=== PATIENT | male | born 1965 | race Caucasian/White ===

== ENCOUNTER → 2022-12-05 07:25 | Outpatient (CLI) | payer BC, SELFPAY ==
--- NOTE | 2022-12-05 07:34 | CA_ITS ---
FINAL REPORT TECHNIQUE: Grayscale, color Doppler and duplex Doppler ultrasound of the kidneys, aorta and renal arteries was performed. Multiple velocities were measured. CLINICAL HISTORY: HTN, Obesity COMPARISON: None FINDINGS: Aorta velocity: 105.9 cm/sec Right kidney: 12.6 cm. No evidence of hydronephrosis or mass. Right intrarenal RI: 0.7 Right renal artery velocity: 158 cm/sec. Right RAR (Renal artery-Aortic Ratio): 1.5 Left Kidney: 11.6 cm. No evidence of hydronephrosis or mass. Left intrarenal RI: 0.64 Left renal artery velocity: 210.8 cm/sec. Left RAR (Renal Artery-Aortic Ratio): 2 IMPRESSION: No evidence of significant renal artery stenosis on the right. Less than 60% left renal artery stenosis. CT angiogram, catheter angiography, or postcontrast MR angiogram would be more sensitive for evaluation of possible renal artery stenosis. Reviewed, Interpreted and Dictated by Josh Dorantes III, MD Transcribed by Adrienne Reyna Authenticated and [facility]
--- NOTE | 2022-12-05 07:34 | CA_ITS ---
APPROVED REPORT EXAM: Comprehensive 2D, Doppler, and color-flow Echocardiogram Bunch Maker Hand: Linda Putnam CRT Ht: 5 ft 6 in Wt: 288lbs BSA: 2.33 BP: 166/93 mmHg Indications: Chest Pain, Diabetes, Peripheral Edema, Hypertension/HDD 2D Dimensions LVOT 1.83 cm (M/F) 1.5-2.5 LA Volume 85.30 mL LA Volume Index 35.70 mL/m2 (M/F) 16-34 M-Mode Dimensions RVDd 2.84 cm (0.9-2.6) LA Diam 4.19 cm (1.9-4.0) LVDd 5.14 cm (3.5-5.7) Ao Diam 4.75 cm (2.0-3.7) LVDs 3.24 cm (3.5-5.7) IVSd 2.17 cm (0.6-1.1) PWd 1.07 cm (0.6-1.1) EF (Teich) 66.50% FS 37.00% EDV (Teich) 126.10 mL TAPSE 3.50 (<1.7) ESV (Teich) 42.20 mL LV Diastology E Decel Time 300.00 (160-240 msec) E/A Ratio 0.54 MED E' 2.40 (< 7 cm/sec) MED A' 8.10 cm/s E'/MED E' Ratio 21.21 (>14) LAT E' 5.20 (<10 cm/sec) LAT A' 10.80 cm/s E/LAT E' Ratio 9.79 (>14) Aortic Valve LVOT Max 145.00 (70-110 cm/s) LVOT VTI 32.82 cm AoV Peak Josue. 154.00 (50-130 cm/s) AO Peak GR. 9.50 mmHg AO Mean GR. 5.50 (<5 mmHg) AO VTI 29.21 (18-25 cm) BEATRICE (VTI) 2.96 (2.5-4.5 cm2) Mitral Valve MV A Velocity 94.00 (40-130 cm/s) E/A Ratio 0.54 MV Decel. Time 300.00 (160-240 ms) Pulmonary Valve PV Peak Velocity 92.00 (50-150 cm/s) Tricuspid Valve TR P. Velocity 218.00 cm/s RAP Estimate 10.00 mmHg RVSP 28.90 mmHg Left Ventricle The left ventricle is normal size. The left ventricular systolic function is normal. The left ventricular ejection fraction is within the normal range. There is increased LV wall thickness. There is normal LV segmental wall motion. Transmitral Doppler flow pattern suggests impaired LV relaxation. LVEF is 60???65%. Right Ventricle Right ventricle is mildly dilated. The right ventricular systolic function is normal. Atria The left atrium size is normal. The right atrium size is normal. There is no Doppler evidence of interatrial shunt. Aortic Valve The aortic valve is mildly thickened. There is no aortic valvular stenosis. Trace aortic regurgitation. Mitral Valve The mitral valve leaflets are mildly thickened. No evidence of mitral valve stenosis. Trace mitral regurgitation. Tricuspid Valve The tricuspid valve leaflets are thin and pliable. Trace tricuspid regurgitation. RVSP is 20-25 mmHg. Pulmonic Valve The pulmonary valve is normal in structure. Trace pulmonic regurgitation. Great Vessels The aortic root is normal in size. The ascending aorta is mildly dilated, measuring 4.1 cm in diameter. IVC is normal in size and collapses >50% with inspiration. Pericardium There is no pericardial effusion. Other Information Study Quality: Fair Conclusion Normal biventricular systolic function. Mildly dilated RV. Mildly dilated ascending aorta, measuring 4.1 cm in diameter Electronically signed by : Haley Rose MD 12/07/2022 21:38:46
--- NOTE | 2022-12-05 08:43 | US_ITS ---
FINAL REPORT TECHNIQUE: Ultrasound images of the kidneys and bladder were obtained. CLINICAL HISTORY: K21.9 - Gastro-esophageal reflux disease without esophagitis-- hypertension COMPARISON: None FINDINGS: The right kidney measures 11.2 cm in length. It is normal in echogenicity. There is no hydronephrosis. No masses are identified. The left kidney measures 10.9 cm in length. It is normal in echogenicity. There is no hydronephrosis. IMPRESSION: Unremarkable renal ultrasound. Reviewed, Interpreted and Dictated by Josh Dorantes III, MD Transcribed by Adrienne Reyna Authenticated and [facility]
== END ==
PROVIDERS: PCP Family Medicine; Visit Provider Physician Assistant
DX: I10 Essential (primary) hypertension (principal); R06.00 Dyspnea, unspecified; R07.89 Other chest pain; Z82.49 Family history of ischemic heart disease and other diseases of the circulatory system; K21.9 Gastro-esophageal reflux disease without esophagitis; E11.9 Type 2 diabetes mellitus without complications; Z79.84 Long term (current) use of oral hypoglycemic drugs; E66.9 Obesity, unspecified; Z68.42 Body mass index [BMI] 45.0-49.9, adult
CPT/HCPCS: 76770; 93306; 93976

== ENCOUNTER 2022-12-15 06:28 | Outpatient (CLI) | payer BC, SELFPAY ==
--- NOTE | 2022-12-15 06:35 | CT_ITS ---
APPROVED REPORT Religious Activities Director: CLINICAL INDICATION Chest Pain TECHNIQUE Image Acquisition: A 128 slice MDCT scanner ([employer] View) was used for data acquisition. A noncontrast coronary calcium scan was performed. A CT attenuation threshold of 130 Hounsfield units (HU) was used for the detection of calcium in contiguous voxels of 1 sq mm in area to be counted as individual lesions. Bolus tracking in the ascending aorta with a threshold of 180 HU was performed. Immediately afterwards, ECG synchronized cardiac CT was then performed from the cardiac base to apex using retrospective gating with ECG tube current modulation. A total of 85 mL of Isovue 370 mg/mL contrast medium was administered at 5 mL/sec followed by a saline flush using a biphasic injection protocol. A tube voltage of 120 KVp was used. The patient received the following medications prior to the cardiac CT. 0.8 mg of sublingual nitroglycerin The average heart rate at the time of acquisition was 54 bpm and regular. Image Reconstruction Transaxial images were reconstructed at 0.67 mm slide thickness. Data was reviewed interactively on an advanced workstation capable of 2 and 3-dimensional displays in all conventional reconstruction formats, including multiplanar reformations, maximum intensity projections, curved multiplanar reformations, and volume rendered reconstructions. When applicable, selected routine images describing the relevant coronary anatomy and pathology were saved and sent to PACS. Complications None Technical Quality Overall image quality was good. Coronary artery opacification was adequate. Total DLP (Dose-Length Product) is 1403.1 mGy-cm. The reported value represents the total of one or more individual components during the CT acquisition of this date and at this time, and as such, the same value may appear in more than one CT report depending on the interpreting/reporting physicians. COMPARISON None FINDINGS CT Coronary Calcium Scoring LMA (Left Main Artery) = 0 LAD (Left Anterior Descending) = 205 LCX (Left Coronary Circumflex) = 2 RCA (Right Coronary Artery) = 0 Total Calcium Score = 207 using the AJ-130 method. The observed calcium score of 207 is at 83rd percentile for subjects of the same age, sex, and race/ethnicity. The interpretation of the calcium heart score is based on the following continuum*: 0 = no calcified plaque detected (risk of coronary artery disease is very low ??? less than 5%) 1-10 = calcium detected in extremely minimal levels (risk of coronary diseases is still low ??? less than 10%) 11-100 = mild levels of plaque detected with certainty (mild or minimal narrowing of heart arteries is likely) 101-400 = definite,at least moderate levels of plaque detected (relatively high risk of a heart attack within 3-5 years) >401-999 = extensive levels of plaque detected (high risk of heart attack, high levels of vascular disease are present, high likelihood of at least one significant coronary narrowing) *The calcium heart score quantifies the burden of coronary calcification/plaque in the coronary arteries. The calcium heart score is not able to evaluate the presence or burden of non-calcified (i.e. soft) plaque. There is calcification in the aortic valve, but no identiable calcification in the mitral annulus or mitral valve, pericardium, or myocardium. Coronary CT Angiography Coronaries have normal origin and proximal course. The coronary arterial system is right dominant. Note: Stenosis is reported as maximum percentage diameter stenosis. Quantitative Stenosis Grading: Left Main (LM): The left main originates normally from the left sinus of Valsalva. The LM bifurcates into the left anterior descending artery
[2022-12-15 07:24] VITALS: BMI 45.6
[2022-12-15 07:29] VITALS: BP 115/60; PULSE 56; RESP 18; TEMP 36.6; O2SAT 96
[2022-12-15 07:45] LABS: POC Glucose,Bedside 152 (70-110)
[2022-12-15 08:02] LABS: Chloride 99 mmol/L (98-107)
[2022-12-15 08:03] LABS: Potassium 3.5 mmoL/L (3.5-5.1); Sodium 138 mmol/L (136-145)
[2022-12-15 08:06] LABS: Anion Gap 13.5 mEq/L (5-15); Blood Urea Nitrogen 18 mg/dl (9-20); Calcium 8.7 mg/dl (8.4-10.2); Carbon Dioxide 29 mmol/L (22.0-30.0); Creatinine Clearance Estimated 73 mL/min (50-200); Estimated Glomerular Filt Rate 77 ml/min (>60); GFR (African American) 93 ML/MIN (>60); Glucose 156 mg/dl (74-100)
[2022-12-15 08:15] VITALS: BP 160/89; PULSE 58
--- NOTE | 2022-12-15 08:15 | PC.NURSE ---
Pt to CT room, VSS, no C/O
[2022-12-15 08:20] VITALS: BP 155/87; PULSE 60
--- NOTE | 2022-12-15 08:20 | PC.NURSE ---
post nitro vss
[2022-12-15 08:28] VITALS: BP 111/54; PULSE 57
--- NOTE | 2022-12-15 08:28 | PC.NURSE ---
Test complete, VSS, take to post op for recovery period. Report given to Elvira Goddard RN
[2022-12-15 08:33] VITALS: BP 113/60; PULSE 53; RESP 18; TEMP 36.7; O2SAT 93
== END 2022-12-15 08:43 | disposition home or self-care (01) ==
PROVIDERS: PCP Family Medicine; Visit Provider Physician Assistant
DX: R06.00 Dyspnea, unspecified (principal); R07.89 Other chest pain; I10 Essential (primary) hypertension; E11.9 Type 2 diabetes mellitus without complications; K21.9 Gastro-esophageal reflux disease without esophagitis; E66.9 Obesity, unspecified; Z68.42 Body mass index [BMI] 45.0-49.9, adult; Z82.49 Family history of ischemic heart disease and other diseases of the circulatory system; Z79.84 Long term (current) use of oral hypoglycemic drugs
CPT/HCPCS: 75574; 80048; 82962; Q9967